=== PATIENT | male | born 1945 | race Caucasian/White ===

== ENCOUNTER → 2017-07-01 08:50 | Outpatient (CLI) | payer MEDICARE, SELFPAY ==
[2017-07-01 09:00] VITALS: PULSE 63; PULSE 67; PULSE 70; PULSE 71; PULSE 72; PULSE 73; O2SAT 94; O2SAT 95; O2SAT 96
--- NOTE | 2017-07-01 10:14 | WT_ITS ---
PSN 6 Minute Walk Test - 6 Minute Walk Test 6 Minute Walk Test: 6 Minute Walk Test PSN:6-Minute Walk Test Start: 07/01/17 09: 35 Freq: Status: Active Protocol: [id number] Document 07/01/17 09:00 EW (Rec: 07/01/17 09:38 EW [id number]) 6 Minute Walk Test Date Performed 07/01/17 Time Performed 09:00 Height 6 ft Weight: 180 lb Weight in Pounds 180.[address]: Heike Garibay Assistive device used: None Pre-test Oxygen Delivery Method Room Air Pulse Ox (%) 95 Pulse Rate (60-100 beats/min) 63 Dyspnea Cyn Scale (0-10) 1 Exertion Cyn Scale (6-20) 7 1st minute Oxygen Delivery Method Room Air Pulse Ox (%) 96 Pulse Rate (60-100 beats/min) 67 2nd minute Oxygen Delivery Method Room Air Pulse Ox (%) 94 Pulse Rate (60-100 beats/min) 70 3rd minute Oxygen Delivery Method Room Air Pulse Ox (%) 95 Pulse Rate (60-100 beats/min) 71 4th minute Oxygen Delivery Method Room Air Pulse Ox (%) 94 Pulse Rate (60-100 beats/min) 72 5th minute Oxygen Delivery Method Room Air Pulse Ox (%) 95 Pulse Rate (60-100 beats/min) 73 6th minute Oxygen Delivery Method Room Air Pulse Ox (%) 96 Pulse Rate (60-100 beats/min) 72 Post-test Oxygen Delivery Method Room Air Pulse Ox (%) 95 Pulse Rate (60-100 beats/min) 70 Dyspnea Cyn Scale (0-10) 2 Exertion Cyn Scale (6-20) 11 Full Laps Walked 18 Partial Lap, Number of Tiles Walked 17 Total Distance Walked (ft) 1079 - Interpretation Interpretation: The patient ambulated 1079 feet over the course of 6 minutes on room air without assistive devices or breaks. Pretesting oxygen saturation was noted to be 95% on room air. With ambulation, the radha oxygen saturation was 94%. There was no significant exertional oxygen desaturation. - Recommendations Recommendations: There is no indication for the use of supplemental oxygen at this time.
== END ==
PROVIDERS: Visit Provider Nurse Practitioner Acute Care
DX: J44.9 Chronic obstructive pulmonary disease, unspecified (principal)
CPT/HCPCS: 94618

== ENCOUNTER → 2017-07-04 09:46 | Outpatient (CLI) | payer MEDICARE, SELFPAY ==
--- NOTE | 2017-07-05 08:48 | PFT ---
INTRODUCTION: The patient is a 72-year-old male currently under the care of Heike Garibay NP that presents for pulmonary function testing secondary to a diagnosis of COPD. Respiratory therapy reports good patient effort reports no other concerns. Bronchodilators were used during testing. INTERPRETATION: Forced expiration spirometry demonstrates the presence of a mild large airways obstructive ventilatory defect. There was no significant response to aerosolized bronchodilators, based upon strict ATS criteria. Spirograms are of good quality and do not plateau indicating slow emptying of the lungs. Body plethysmography was performed and reveals lung volumes to be within normal limits. Diffusing capacity by single breath CO is at the lower limits of normal at 73% of predicted. When compared to previous pulmonary function studies dated June 2015 there has been a 10% reduction in the patient's FEV1 with a corresponding 10% improvement in DLCO. IMPRESSION: These pulmonary function studies demonstrate the presence of an irreversible mild large airways obstructive ventilatory defect. Diffusing capacity is at the lower limits of normal.
== END ==
PROVIDERS: Visit Provider Nurse Practitioner Acute Care
DX: J44.9 Chronic obstructive pulmonary disease, unspecified (principal)
CPT/HCPCS: 94060; 94726; 94729

== ENCOUNTER → 2018-03-05 13:08 | Outpatient (CLI) | payer MEDICARE, SELFPAY ==
--- NOTE | 2018-03-05 13:21 | CT_ITS ---
STUDY: CT CHEST WITH CONTRAST REASON FOR EXAM: Male, 73 years old. Follow up lung cancer. RADIATION DOSAGE (If Supplied By Facility): CTDIvol = ( 14.57 ) mGy, DLP = ( 487.31 ) mGycm TECHNIQUE: Transaxial imaging was performed following intravenous administration of 100CC ml of Isovue 300 contrast material. Individualized dose optimization techniques were used for this CT. COMPARISON: 03/04/2017. FINDINGS: Again seen is hyperexpansion of the lungs consistent with underlying COPD. There may be mild diffuse interstitial thickening, stable. There are numerous stable small nodules primarily in the right lung. As example, a 4 mm nodule is seen in the lateral right apex, axial image 40. A 5 mm nodule is seen in the anterior segment of the right upper lobe, axial image 43. A 6 mm nodule is seen in the posterior aspect of the right upper lobe, axial image 53. A 7 mm nodule seen in the anterior aspect of the right lower lobe, axial image 76. Stable linear scarring radiating outward from the left hilum and associated with mild localized bronchiectasis. Stable probable mild fibrotic changes in the periphery of the lateral aspect of the left upper lobe. Stable mild thickening in the posterior lower right pleura. Normal heart and pericardium. There are calcifications of the coronary arteries. Normal mediastinum. Normal hilar regions. Normal enhanced pulmonary arteries. Normal aorta arch and descending thoracic aorta. There are multi-level degenerative changes of the thoracic spine. There is no demonstrated abnormality of the visualized upper abdomen. CT/Chest WITH Contrast IMPRESSION: No change and no acute abnormality. COPD. Stable nodules. Electronically Signed: Dell Yen MD at 14:41 EST , Service support ,
[2018-03-05 13:43] LABS: Absolute Lymphocyte Count 2.41 X10^3/ul (0.83-4.51); Absolute Neutrophil Count 4.4 X10^3/uL (2.0-7.7); Basophil# 0.02 X10^3/uL; Basophil% 0.3 % (0-1); Eosinophil# 0.15 X10^3/uL; Eosinophils% 1.9 % (0-5); Hematocrit 46.4 % (40-54); Hemoglobin 15.6 g/dl (13.0-16.5); Lymphocyte # 2.41 X10^3/ul (4.0); Lymphocyte % 30.4 % (19-41); Mean Corp Hgb Conc 33.6 g/gl (32-36); Mean Corpuscular Hgb 31.6 pg (27.0-32.0); Mean Corpuscular Volume 94.1 fL (80-94); Monocyte# 0.88 X10^3/uL; Monocyte% 11.1 % (0-10); Neutrophil # 4.44 X10^3/uL (2.7-7.7); Platelet Count 214 K/mm3 (150-450); RBC Distribution Width CV 13.7 % (11.6-14.6); Red Blood Count 4.93 M/mm3 (4.6-6.2); White Blood Count 7.9 K/mm3 (4.4-11.0)
[2018-03-05 13:44] LABS: POSITIVE COUNT NO; POSITIVE DIFFERENTIAL NO; POSITIVE MORPHOLOGY NO
[2018-03-05 13:59] LABS: ALB/GLOB Ratio 0.9 RATIO (0.9-2.4); AST(SGOT) 14 U/L (15-37); Alanine Aminotransfer ALT/SGPT 25 U/L (16-61); Albumin, Serum 3.7 g/dL (3.2-5.0); Alkaline Phosphatase 65 U/L (45-117); Anion Gap 6 (5-15); BUN 26 mg/dL (7-18); BUN/Creat Ratio 23.4 RATIO (10-20); Calcium,Total 8.6 mg/dL (8.5-10.1); Chloride 99 mmol/L (98-107); Creatinine, Serum 1.11 mg/dL (0.70-1.30); EST Glomerular Filtration Rate 69 mL/min (>60); Est Glom Filt Rate - Afr Amer 84 mL/min (>60); Globulin 3.9 g/dL (2.2-4.2); Glucose 82 mg/dL (74-106); Potassium 4.5 mmol/L (3.5-5.1); Protein, Total 7.6 g/dL (6.4-8.2); Sodium Level 133 mmol/L (136-145)
[2018-03-05 21:13] LABS: Xtra Tube EP Lab EXTRA TUBE
== END ==
PROVIDERS: Referring Provider Internal Medicine Medical Oncology; Visit Provider Internal Medicine Medical Oncology
DX: C34.92 Malignant neoplasm of unspecified part of left bronchus or lung (principal); J44.9 Chronic obstructive pulmonary disease, unspecified
CPT/HCPCS: 36415; 71260; 80053; 85025; Q9967

== ENCOUNTER 2018-08-08 11:41 | Day surgery (SDC) | payer MEDICARE, SELFPAY ==
[2018-07-24 11:03] VITALS: BMI 26.6
[2018-08-08] VITALS (8 sets, daily range): BP systolic 70–140; BP diastolic 50–59; PULSE 51–63; RESP 16–18; TEMP 35.9–36.4; O2SAT 92–99; BMI 24.5
--- NOTE | 2018-08-08 13:05 | RAD_ITS ---
CLINICAL HISTORY: Male, 73 years old. T12 kyphoplasty. PROCEDURE: KYPHOPLASTY - T12 compression deformity, symptomatic. 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 Injection of bone cement appears to extend into the adjacent discs. No cement is identified in the bony canal. No significant incidental finding. 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 Injection of bone cement appears to extend into the adjacent discs. There does appear to be a good vertebral body construct. No cement is identified in the bony canal. No significant incidental finding. Comment: Fluoroscopy services provided for clinical procedure. Please refer to operating physician's procedure note for additional detail. Electronically Signed: Robert Styles MD at 10:24 EDT , Service support ,
[2018-08-08] MEDS: Cefazolin 2 GM in 0.9% Normal Saline 100 ML IV (14:06)
--- NOTE | 2018-08-08 15:30 | EKG12_ITS ---
Test Reason : Blood Pressure : / mmHG Vent. Rate : 055 BPM Atrial Rate : 055 BPM P-R Int : 224 ms QRS Dur : 102 ms QT Int : 460 ms P-R-T Axes : 029 -36 -27 degrees QTc Int : 440 ms Sinus bradycardia with 1st degree A-V block Left axis deviation Nonspecific T wave abnormality Abnormal ECG Confirmed by LOTUS NORIEGA, LINDA ([id number]), content editor RAO BARRERA ([id number]) on 08/13/2018 1:41:54 PM Referred By: Tyler Rust Confirmed By:LINDA GAUTAM MD
== END 2018-08-08 16:52 | disposition home or self-care (01) ==
LOC: SDC 11:41 → ACINP 11:45
PROVIDERS: Anesthesiology; Family Provider Nurse Practitioner Family; PCP Nurse Practitioner Family; Referring Provider Anesthesiology Pain Medicine; Visit Provider Anesthesiology Pain Medicine
PROC: (CPT 22513; principal; 2018-08-08 12:50)
DX: M80.08XA Age-related osteoporosis with current pathological fracture, vertebra(e), initial encounter for fracture (principal); F17.200 Nicotine dependence, unspecified, uncomplicated; Z85.118 Personal history of other malignant neoplasm of bronchus and lung; Z79.899 Other long term (current) drug therapy; Z79.82 Long term (current) use of aspirin; I10 Essential (primary) hypertension; I25.2 Old myocardial infarction; J44.9 Chronic obstructive pulmonary disease, unspecified
CPT/HCPCS: 22513; 72020; 76000; 84484; 93005; J7120

== ENCOUNTER → 2018-12-11 | Outpatient (CLI) | payer MEDICARE, SELFPAY ==
[2018-08-08 11:57] VITALS: BMI 24.5
[2018-12-11 16:57] LABS: Amphetamine Urine VISTA NEGATIVE (<1000 ng/mL); Barbiturate Urine VISTA NEGATIVE (< 200 ng/mL); Benzodiazepine Urine VISTA NEGATIVE (< 200 ng/mL); Cocaine Urine VISTA NEGATIVE (< 300 ng/mL); Ecstacy Urine VISTA NEGATIVE (< 500 ng/mL); Methadone Urine VISTA NEGATIVE (< 300 ng/mL); PCP Urine VISTA NEGATIVE (< 25 ng/mL); THC Urine VISTA NEGATIVE (< 50 ng/mL); Vista UDS pH Range 5
== END | disposition home or self-care (01) ==
LOC: LAB 15:38
PROVIDERS: Family Provider Nurse Practitioner Family; PCP Nurse Practitioner Family; Referring Provider Anesthesiology Pain Medicine; Visit Provider Anesthesiology Pain Medicine
DX: F11.20 Opioid dependence, uncomplicated (principal)
CPT/HCPCS: 80307

== ENCOUNTER → 2019-03-09 12:34 | Outpatient (CLI) | payer MEDICARE, SELFPAY ==
[2018-08-08 11:57] VITALS: BMI 24.5
--- NOTE | 2019-03-09 12:36 | CT_ITS ---
STUDY: CT CHEST WITH CONTRAST REASON FOR EXAM: Male, 74 years old. Lung cancer follow-up, status post left lung resection RADIATION DOSAGE (If Supplied By Facility): CTDIvol = ( 10.03 ) mGy, DLP = ( 499.93 ) mGycm TECHNIQUE: Transaxial imaging was performed following intravenous administration of IV Isovue 370 100CC. Individualized dose optimization techniques were used for this CT. COMPARISON: Previous study of 03/05/2018 FINDINGS: There are mild diffuse emphysematous changes of the lungs. There is a stable 4 mm right upper lobe nodule, image 39 series 4. There is a stable right upper lobe nodule measuring 5 mm image 40 series 4. There is a stable 6 mm nodule of the posterior right upper lobe image 52 series 4. There is a stable 7 mm nodule of the superior segment of the right lower lobe image 73 of series 4 there are several additional smaller right lung nodules. There is minimal fibrosis of the left upper lobe. There is minimal herniated abdominal fat of the posterior inferior right hemithorax. The heart size is within normal limits. There is no pericardial effusion. Coronary arterial calcifications are present. Nonpathologically enlarged scattered mediastinal nodes are noted. Normal hilar regions. Normal enhanced pulmonary arteries. 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 There are diffuse degenerative changes of the visualized thoracolumbar spine. There is severe compression deformity with status post vertebroplasty changes of T12. There is no demonstrated abnormality of the visualized upper abdomen. CT/Chest WITH Contrast IMPRESSION: Stable pulmonary nodules. No new nodules are evident. Minimal left upper lobe fibrosis. Mild diffuse emphysematous changes of the lungs. 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 Electronically Signed: Brennon Olmstead MD at 19:45 EST , Service support ,
[2019-03-09 12:45] LABS: CREATININE FINGERSTICK 1.3 mg/dL (0.70-1.30)
== END ==
PROVIDERS: Family Provider Nurse Practitioner Family; PCP Nurse Practitioner Family; Referring Provider Internal Medicine Medical Oncology; Visit Provider Internal Medicine Medical Oncology
DX: C34.32 Malignant neoplasm of lower lobe, left bronchus or lung (principal)
CPT/HCPCS: 71260; Q9967

== ENCOUNTER → 2020-03-09 12:57 | Outpatient (CLI) | payer MEDICARE, SELFPAY ==
[2019-03-12 13:23] VITALS: BMI 26.4
--- NOTE | 2020-03-09 13:01 | CT_ITS ---
STUDY: CT CHEST WITH CONTRAST REASON FOR EXAM: Male, 75 years old. LUNG NODULES FOLLOW UP -- HX-LUNG CA W/MASS REMOVED FROM LEFT LUNG RADIATION DOSAGE (If Supplied By Facility): CTDIvol = ( 18.06 ) mGy, DLP = ( 624.67 ) mGycm TECHNIQUE: Transaxial imaging was performed following intravenous administration of IV 100mL Isovue-300. Multiplanar coronal and sagittal images were reformatted. Individualized dose optimization techniques were used for this CT. COMPARISON: Comparison is made with prior study dated 03/09/2019. FINDINGS: Emphysematous changes with centrilobular emphysema worse in the upper lobes. Minimal increased markings in the peripheral lateral aspect of the lingular segment of the left upper lobe suggestive of a scar. This is essentially unchanged. Stable 6 mm nodule in the posterior right upper lobe. Stable 7 mm noncalcified nodule in the superior segment of the right lower lobe. There is no demonstrated pleural abnormality. Normal heart and pericardium. There are calcifications of the coronary arteries. There are multiple small lymph nodes within the mediastinum, which are normal in size and morphology most compatible with reactive lymph hyperplasia. Normal hilar regions. Normal enhanced pulmonary arteries. Normal aorta arch and descending thoracic aorta. There are multi-level degenerative changes of the thoracic spine. Stable loss of height in the vertebroplasty of the T12 vertebrae. Small hiatal hernia. CT/Chest WITH Contrast IMPRESSION: Stable examination. Electronically Signed: Peter Alatorre, at 14:26 EST , Service support ,
[2020-03-09 13:30] LABS: CREATININE FINGERSTICK 1.4 mg/dL (0.70-1.30)
== END ==
PROVIDERS: PCP Nurse Practitioner Family; Referring Provider Internal Medicine Medical Oncology; Visit Provider Internal Medicine Medical Oncology
DX: Z85.118 Personal history of other malignant neoplasm of bronchus and lung (principal)
CPT/HCPCS: 71260; Q9967

== ENCOUNTER → 2021-03-02 10:39 | Outpatient (CLI) | payer MEDICARE, SELFPAY ==
--- NOTE | 2021-03-02 10:55 | RAD_ITS ---
STUDY: X-RAY CHEST REASON FOR EXAM: Male, 76 years old. CHEST PAIN HX OF LUNG CA TECHNIQUE: XR Chest 2 Views COMPARISON: Prior comparison studies are not available for review at this time. FINDINGS: There is no demonstrated pleural abnormality. The lung concepcion are hyperexpanded. Lower lobe pulmonary fibrosis. Normal size heart. Normal mediastinum and caridad. Normal visualized pulmonary arteries. There is atherosclerotic calcification of the aortic arch with tortuosity. There are diffuse degenerative changes of the visualized thoracic spine. There is degenerative osteoarthritis of the bilateral shoulders. Aortic stent graft noted. RAD/Chest PA and Lateral IMPRESSION: There are no acute findings. Electronically Signed: Mark Chaney MD at 21:14 EST , Service support ,
== END ==
PROVIDERS: PCP Nurse Practitioner Family; Referring Provider Internal Medicine Medical Oncology; Visit Provider Internal Medicine Medical Oncology
DX: Z85.118 Personal history of other malignant neoplasm of bronchus and lung (principal)
CPT/HCPCS: 71046

== ENCOUNTER → 2022-03-01 | Outpatient (CLI) | payer MEDICARE, SELFPAY ==
--- NOTE | 2022-03-01 13:25 | RAD_ITS ---
STUDY: X-RAY CHEST REASON FOR EXAM: Male, 77 years old. HX OF LUNG CA TECHNIQUE: PA and lateral views of the chest. COMPARISON: 03/02/2021 FINDINGS: There is hyperinflation of the lungs consistent with chronic obstructive lung disease (COPD). There is no demonstrated pleural abnormality. Normal size heart. Normal mediastinum and caridad. Normal visualized pulmonary arteries. Normal visualized aortic arch and descending thoracic aorta. Normal visualized thoracic spine. Normal visualized ribs, clavicles, and shoulders. There is no demonstrated abnormality of the visualized soft tissue structures of the upper abdomen. RAD/Chest PA and Lateral IMPRESSION: Emphysema without pneumonia or atelectasis. Electronically Signed: John Ayers MD at 16:54 EST ,
== END | disposition home or self-care (01) ==
LOC: RAD 13:23
PROVIDERS: PCP Nurse Practitioner Family; Visit Provider Internal Medicine Medical Oncology
DX: Z85.118 Personal history of other malignant neoplasm of bronchus and lung (principal)
CPT/HCPCS: 71046

== ENCOUNTER → 2023-02-25 | Outpatient (CLI) | payer OTHER, SELFPAY ==
--- NOTE | 2023-02-25 13:11 | RAD_ITS ---
STUDY: X-RAY CHEST REASON FOR EXAM: Male, 78 years old. History of lung cancer. Follow-up. TECHNIQUE: Frontal and lateral views of the chest. COMPARISON: March 01, 2022 FINDINGS: Hyperinflation with diffuse interstitial prominence most marked in the bases, unchanged. There is no demonstrated pleural abnormality. Cardiomegaly with aortic tortuosity unchanged. Normal mediastinum and caridad. Normal visualized pulmonary arteries. Aortic graft unchanged. Normal visualized thoracic spine. Thoracic osteopenia with diffuse spondylosis and vertebral plasty changes, unaltered. No abnormality of the visualized soft tissue structures of the upper abdomen. RAD/Chest PA and Lateral IMPRESSION: Stable chest with no acute superimposed finding. Electronically Signed: Dano Mckay MD at 9:17 EST ,
== END | disposition home or self-care (01) ==
LOC: RAD 13:02
PROVIDERS: PCP Nurse Practitioner Family; Referring Provider Internal Medicine Medical Oncology; Visit Provider Internal Medicine Medical Oncology
DX: Z85.118 Personal history of other malignant neoplasm of bronchus and lung (principal)
CPT/HCPCS: 71046